=== PATIENT | female | born 1985 | race Two or more races ===

== ENCOUNTER 2021-12-22 23:04 | Emergency (ER) | payer MEDICAID, OTHER | END 2021-12-23 01:19 | disposition left against medical advice (07) | LOC: ER 23:04 | DX: R06.02 Shortness of breath (principal); M54.6 Pain in thoracic spine; Z53.21 Procedure and treatment not carried out due to patient leaving prior to being seen by health care provider ==

== ENCOUNTER 2022-01-05 14:32 | Emergency (ER) | payer MEDICAID ==
[~2022-01-05] VITALS: Ht 160 cm; Wt 97.7 kg
[2022-01-05 15:41] VITALS: BP 109/77
[2022-01-05] MEDS ORDERED: PRED20TA2 PO (16:33)
[2022-01-05] MEDS ORDERED: HYDR25CA PO (16:33)
== END 2022-01-05 17:06 | disposition home or self-care (01) ==
LOC: ER 14:32
DX: L42 Pityriasis rosea (principal); Z79.899 Other long term (current) drug therapy

== ENCOUNTER 2023-01-15 12:45 | Emergency (ER) | payer MEDICAID ==
[~2023-01-15] VITALS: Ht 162.6 cm; Wt 95.4 kg
[~2023-01-15 12:45] MED LIST: HYDR25CA PO; PRED20TA2 PO
[2023-01-15] MEDS ORDERED: LIDOCAINE 1% HCL (LOCAL ANESTH.) INJ 20ML MDV ID ONE (17:00)
[2023-01-15] MEDS ORDERED: TETANUS-DIPTH-ACEL PERTUSSIS 0.5ML SYR Tdap IM ONE (17:00)
[2023-01-15 18:00] VITALS: BP 140/70; TEMP 97.8
[2023-01-15] MEDS ORDERED: HYDROcodone-ACET 5/325MG TAB PO ONE (18:30)
[2023-01-15] MEDS ORDERED: CEPHALEXIN 250 MG CAP PO ONE (18:30)
[2023-01-15] MEDS ORDERED: MUPI2OIN2 EX (18:34)
[2023-01-15] MEDS ORDERED: CYCL-839 PO (18:34)
[2023-01-15] MEDS ORDERED: IBUP-1454 PO (18:34)
[2023-01-15] MEDS ORDERED: CEPH500C PO (18:34)
[2023-01-15 18:50] VITALS: PULSE 95; RESP 18; O2SAT 100
== END 2023-01-15 18:55 | disposition home or self-care (01) ==
LOC: ER 12:45
DX: S01.01XA Laceration without foreign body of scalp, initial encounter (principal); S43.402A Unspecified sprain of left shoulder joint, initial encounter; S13.9XXA Sprain of joints and ligaments of unspecified parts of neck, initial encounter; Y04.8XXA Assault by other bodily force, initial encounter; Y93.89 Activity, other specified; Y92.89 Other specified places as the place of occurrence of the external cause; Y99.8 Other external cause status
CPT/HCPCS: 12002; 70450; 72125; 73030; 90471; 90715

== ENCOUNTER 2023-01-26 08:37 | Emergency (ER) | payer MEDICAID ==
[~2023-01-26] VITALS: Ht 162.6 cm; Wt 97.5 kg
[~2023-01-26 08:37] MED LIST changes: +CEPH500C PO; +CYCL-839 PO; +IBUP-1454 PO; +MUPI2OIN2 EX
[2023-01-26 09:21] VITALS: BP 155/76; PULSE 85; RESP 16; TEMP 97.7; O2SAT 96
[2023-01-26] MEDS ORDERED: METH-1182 PO (09:42)
[2023-01-26] MEDS ORDERED: IBUP-1456 PO (09:42)
== END 2023-01-26 09:47 | disposition home or self-care (01) ==
LOC: ER 08:37
DX: S01.01XD Laceration without foreign body of scalp, subsequent encounter (principal); M54.40 Lumbago with sciatica, unspecified side; Z48.00 Encounter for change or removal of nonsurgical wound dressing; Z79.1 Long term (current) use of non-steroidal anti-inflammatories (NSAID); Z79.899 Other long term (current) drug therapy; X58.XXXD Exposure to other specified factors, subsequent encounter

== ENCOUNTER 2023-02-19 00:41 | Emergency (ER) | payer MEDICAID ==
[~2023-02-19] VITALS: Ht 162.6 cm; Wt 98.0 kg
[~2023-02-19 00:41] MED LIST changes: +IBUP-1456 PO; +METH-1182 PO
[2023-02-19 01:28] LABS: Basophils # (auto) 0.1 10 ^3/uL (0-0.2); Basophils % (auto) 0.9 % (0.0-2.0); Eosinophils # (auto) 1.1 10 ^3/uL (0-0.8); Eosinophils % (auto) 11.5 % (0.0-7.0); Hematocrit 41.3 % (36.0-46.0); Hemoglobin 13.9 g/dL (12.2-16.2); Lymphocytes # (auto) 2.8 10 ^3/uL (0.4-5.4); Lymphocytes % (auto) 29.8 % (10.0-50.0); Mean Corpuscular Hemoglobin 28.1 pg (28.0-32.0); Mean Corpuscular Hgb Conc. 33.7 g/dL (32.0-36.0); Mean Corpuscular Volume 83.5 fL (80.0-100.0); Monocytes # (auto) 0.5 10 ^3/uL (0-1.3); Monocytes % (auto) 5.5 % (0.0-12.0); Neutrophils # (auto) 4.9 10 ^3/uL (1.6-8.6); Neutrophils % (auto) 52.3 % (37.0-80.0); Red Blood Cells 4.95 10^6/uL (4.0-5.20); Red Cell Distribution Width 12.9 % (11.8-14.3); White Blood Cell 9.4 10^3/uL (4.4-10.8)
[2023-02-19] MEDS ORDERED: ALBUTEROL SULF 2.5 MG/0.5ML(0.5%) NEB SOLN NEB ONE ×2 (01:30→03:45)
[2023-02-19 01:37] LABS: Urine Bacteria NONE SEEN /hpf (None Seen); Urine Blood Negative /uL (Negative); Urine Clarity Clear (Clear); Urine Color Yellow (Yellow); Urine Hyaline Cast FEW /lpf (0 - 2); Urine Mucus FEW (None Seen); Urine Protein, UAD TRACE (Negative); Urine Specific Gravity 1.025 (1.001-1.035); Urine Urobilinogen Normal (Negative); Urine WBC 2 /hpf (0 - 5); Urine pH 5.5 (5.0-8.0)
[2023-02-19 01:51] LABS: Alanine Aminotransferase 81 U/L (7-40); Albumin 4.5 g/dL (3.2-4.8); Alkaline Phosphatase 87 U/L (46-116); Anion Gap 10 (5-15); Aspartate Aminotransferase 39 U/L (13-40); BUN/Creatinine Ratio 7.9 (10.0-20.0); Bilirubin, Total 0.3 mg/dL (0.2-1.0); Blood Urea Nitrogen 6 mg/dL (9-23); Carbon Dioxide 22 mmol/L (20-30); Chloride 108 mmol/L (98-107); Glucose 120 mg/dL (74-106); Potassium 3.3 mmol/L (3.5-5.1); Sodium 140 mmol/L (136-145); Total Protein 7.1 g/dL (5.7-8.2)
[2023-02-19] MEDS ORDERED: DexAMETHasone SOD PHOS 10MG/1ML VIAL INJ IM ONE (03:45)
[2023-02-19 03:57] VITALS: BP 143/73; PULSE 83; RESP 17; TEMP 98.3; O2SAT 97
[2023-02-19] MEDS ORDERED: METH4PAK PO (04:04)
== END 2023-02-19 04:10 | disposition home or self-care (01) ==
LOC: ER 00:41
DX: J45.909 Unspecified asthma, uncomplicated (principal); I10 Essential (primary) hypertension
CPT/HCPCS: 36415; 71045; 80053; 81001; 81025; 85025; 94640; 96372; 99284; J1100

== ENCOUNTER 2023-03-12 19:14 | Emergency (ER) | payer MEDICAID ==
[~2023-03-12] VITALS: Ht 162.6 cm; Wt 95.5 kg
[~2023-03-12 19:14] MED LIST changes: +METH4PAK PO
[2023-03-13] MEDS ORDERED: CYCL-614 PO (00:30)
[2023-03-13] MEDS ORDERED: ACET500T58 PO (00:30)
[2023-03-13 01:56] VITALS: BP 129/64; PULSE 87; RESP 18; TEMP 98.4; O2SAT 96
== END 2023-03-13 02:41 | disposition home or self-care (01) ==
LOC: ER 19:14
DX: S16.1XXA Strain of muscle, fascia and tendon at neck level, initial encounter (principal); S46.811A Strain of other muscles, fascia and tendons at shoulder and upper arm level, right arm, initial encounter; G44.209 Tension-type headache, unspecified, not intractable; I10 Essential (primary) hypertension; J45.909 Unspecified asthma, uncomplicated; Z98.890 Other specified postprocedural states; X58.XXXA Exposure to other specified factors, initial encounter; Y93.89 Activity, other specified; Y92.89 Other specified places as the place of occurrence of the external cause; Y99.8 Other external cause status
CPT/HCPCS: 70450; 72125; 81025

== ENCOUNTER 2023-07-24 17:51 | Emergency (ER) | payer MEDICAID ==
[~2023-07-24] VITALS: Ht 162.6 cm; Wt 98.9 kg
[~2023-07-24 17:51] MED LIST changes: +ACET500T58 PO; +CYCL-614 PO
[2023-07-24 17:54] VITALS: BP 154/72; RESP 20; O2SAT 100
[2023-07-24 18:28] LABS: Basophils # (auto) 0.1 10 ^3/uL (0-0.2); Basophils % (auto) 0.6 % (0.0-2.0); Eosinophils # (auto) 0.6 10 ^3/uL (0-0.8); Eosinophils % (auto) 4.7 % (0.0-7.0); Hematocrit 41.2 % (36.0-46.0); Hemoglobin 13.3 g/dL (12.2-16.2); Lymphocytes # (auto) 3.2 10 ^3/uL (0.4-5.4); Lymphocytes % (auto) 26.3 % (10.0-50.0); Mean Corpuscular Hemoglobin 27.1 pg (28.0-32.0); Mean Corpuscular Hgb Conc. 32.4 g/dL (32.0-36.0); Mean Corpuscular Volume 83.7 fL (80.0-100.0); Monocytes # (auto) 0.8 10 ^3/uL (0-1.3); Monocytes % (auto) 6.3 % (0.0-12.0); Neutrophils # (auto) 7.5 10 ^3/uL (1.6-8.6); Neutrophils % (auto) 62.1 % (37.0-80.0); Nucleated Red Blood Cells % 0.1 %; Red Blood Cells 4.92 10^6/uL (4.0-5.20); Red Cell Distribution Width 13.9 % (11.8-14.3); White Blood Cell 12.1 10^3/uL (4.4-10.8)
[2023-07-24 18:43] LABS: Alanine Aminotransferase 29 U/L (7-40); Albumin 4.3 g/dL (3.2-4.8); Alkaline Phosphatase 65 U/L (46-116); Anion Gap 6 (5-15); Aspartate Aminotransferase 18 U/L (13-40); BUN/Creatinine Ratio 16.3 (10.0-20.0); Bilirubin, Total 0.3 mg/dL (0.2-1.0); Blood Urea Nitrogen 13 mg/dL (9-23); Calcium 9.4 mg/dL (8.5-10.1); Carbon Dioxide 24 mmol/L (20-30); Chloride 108 mmol/L (98-107); Glucose 98 mg/dL (74-106); Sodium 138 mmol/L (136-145); Total Protein 6.2 g/dL (5.7-8.2)
[2023-07-24 21:38] VITALS: PULSE 80
[2023-07-24] MEDS ORDERED: ALBU108A5 IN (21:41)
[2023-07-24] MEDS ORDERED: LISI-275 PO (21:41)
== END 2023-07-24 22:38 | disposition home or self-care (01) ==
LOC: ER 17:51
DX: R07.89 Other chest pain (principal); I10 Essential (primary) hypertension; J45.909 Unspecified asthma, uncomplicated; Z79.1 Long term (current) use of non-steroidal anti-inflammatories (NSAID); Z79.899 Other long term (current) drug therapy
CPT/HCPCS: 36415; 71045; 80053; 83880; 84484; 85025; 93005